=== PATIENT | female | born 1975 | race American Indian/Alaskan Native ===

== ENCOUNTER 2016-09-12 21:11 | Emergency (ER) | payer SELFPAY ==
[2016-09-12] MEDS ORDERED: CATAPRES PO ONE (21:50)
[2016-09-12 22:18] LABS: Basophils % (Auto) 1.2 % (0.0-1.8); Eosinophils % (Auto) 4.3 % (0.0-4.3); Hematocrit 41.1 % (30.3-42.9); Hemoglobin 13.4 gm/dl (10.1-14.3); Mean Corpuscular HGB Conc 32 % (30-34); Mean Corpuscular Hemoglobin 26 pg (28-32); Mean Corpuscular Volume 81 fl (79-97); Platelet Count 275 K/mm3 (140-440); Red Cell Distribution Width 15.4 % (13.2-15.2); White Blood Count 7.5 K/mm3 (4.5-11.0)
[2016-09-12 22:24] LABS: Anion Gap 17 mmol/L; BUN/Creatinine Ratio 16.66; Blood Urea Nitrogen 10 mg/dL (7-17); Calcium 9.2 mg/dL (8.4-10.2); Carbon Dioxide 24 mmol/L (22-30); Chloride 100.8 mmol/L (98-107); Glucose 99 mg/dL (65-100); Potassium 3.5 mmol/L (3.6-5.0); Sodium 138 mmol/L (137-145)
[2016-09-13] MEDS ORDERED: MOTRIN PO ONE (01:26)
[2016-09-13] MEDS ORDERED: TYLENOL PO ONE (01:26)
--- NOTE | 2016-09-13 01:29 | Emergency Department Report ---
ED General Adult HPI - General Chief complaint: Extremity Injury, Upper Stated complaint: NUMBNESS TO R SIDE Time Seen by Provider: 09/13/16 01:18 Source: patient, RN notes reviewed, old records reviewed Mode of arrival: Ambulatory Limitations: No Limitations - History of Present Illness Initial comments: This is a 40-year-old female. She is previously unknown to me. The patient reports that she does not currently have a primary care doctor. She has a history of hypertension, but reports being out of her antihypertensive medication for at least 2 weeks. The patient reports that she is not . The patient presents with intermittent right forearm/hand numbness. This is intermittent for the past few days. The patient reports that she is right- handed [place] There is no extremity weakness. The numbness is primarily on the thumb, pointer, middle finger. It is intermittent. There is no headache, neck pain, chest pain, abdominal pain or shortness of breath. There are no other complaints. The numbness and intermittent pain worsened with palpation on the volar aspect of the wrist. -: Gradual Location: right, upper extremity Severity scale (0 -10): 7 Quality: aching Consistency: intermittent Improves with: movement, rest Associated Symptoms: denies other symptoms - Related Data Home Medications Medication Instructions Recorded Confirmed Last Taken Diovan mg PO DAILY 09/12/16 Unknown Previous Rx's Medication Instructions Recorded Last Taken Type Ibuprofen [Motrin] 600 mg PO Q8H PRN #30 tablet 09/13/16 Unknown Rx Valsartan/Hydrochlorothiazide 1 tab PO QDAY #30 tablet 09/13/16 Unknown Rx [Diovan Hct 160-25 mg] Allergies Allergy/AdvReac Type Severity Reaction Status Date / Time amoxicillin Allergy Headache Verified 03/19/14 23:02 ED Review of Systems ROS: Stated complaint: NUMBNESS TO R SIDE Other details as noted in HPI Constitutional: denies: fever Eyes: denies: vision change ENT: denies: epistaxis Respiratory: denies: cough Cardiovascular: denies: chest pain Gastrointestinal: denies: abdominal pain Genitourinary: as per HPI Musculoskeletal: arthralgia, myalgia Skin: denies: lesions Neurological: paresthesias. denies: weakness Psychiatric: as per HPI ED Past Medical Hx - Past Medical History Hx Hypertension: Yes (out of meds for years.) Additional medical history: Morbid Obesity - Surgical History Past Surgical History?: No - Social History Smoking Status: Never Smoker Substance Use Type: None - Medications Home Medications: Home Medications Medication Instructions Recorded Confirmed Last Taken Type Diovan mg PO DAILY 09/12/16 Unknown History Ibuprofen [Motrin] 600 mg PO Q8H PRN #30 tablet 09/13/16 Unknown Rx Valsartan/Hydrochlorothiazide 1 tab PO QDAY #30 tablet 09/13/16 Unknown Rx [Diovan Hct 160-25 mg] ED Physical Exam - General Limitations: No Limitations General appearance: alert, in no apparent distress, obese - Head Head exam: Present: atraumatic, normocephalic - Eye Eye exam: Present: normal appearance, EOMI. Absent: nystagmus - ENT ENT exam: Present: normal exam, normal orophraynx, mucous membranes moist, normal external ear exam - Neck Neck exam: Present: normal inspection, full ROM. Absent: tenderness, meningismus - Respiratory Respiratory exam: Present: normal lung sounds bilaterally. Absent: respiratory distress, wheezes, rales, rhonchi, stridor, chest wall tenderness, accessory muscle use, decreased breath sounds, prolonged expiratory - Cardiovascular Cardiovascular Exam: Present: regular rate, normal rhythm, normal heart sounds. Absent: systolic murmur, diastolic murmur, rubs, gallop - GI/Abdominal GI/Abdominal exam: Present: soft, normal bowel sounds. Absent: distended, tenderness, guarding, rebound, rigid, pulsatile mass - Extremities Exam Extremities exam: Present: normal inspection, full ROM, normal capillary refill , other ( 2+ pulses are noted in the bilateral upper extremities. Sensation is intact to the deltoid, median, radial, ulnar distribution. Patient has tenderness to percussion on the flexor retinaculum on the right hand. Thumb opposition is intact. Lumbricals are intact. FDP, FDS, extensors are intact.) . Absent: pedal edema, joint swelling, calf tenderness - Back Exam Back exam: Present: normal inspection, full ROM. Absent: tenderness, CVA tenderness (R), CVA tenderness (L), muscle spasm, paraspinal tenderness, vertebral tenderness - Neurological Exam Neurological exam: Present: alert, oriented X3, normal gait, other (Extraocular movements intact. Tongue midline. No facial droop. Facial sensation intact to light touch in the V1, V2, V3 distribution bilaterally. 5 and 5 strength in 4 extremities.. Sensation is intact to light touch in 4 extremities.). Absent : motor sensory deficit - Psychiatric Psychiatric exam: Present: normal affect, normal mood - Skin Skin exam: Present: warm, dry, intact, normal color. Absent: rash ED Course Vital Signs 09/12/16 09/12/16 09/13/16 21:23 21:56 01:13 Temperature 98.5 F Pulse Rate 109 H 109 H 86 Respiratory 18 16 Rate Blood Pressure 223/140 223/140 Blood Pressure 223/140 202/116 [Left] O2 Sat by Pulse 99 99 Oximetry 09/13/16 02:05 Temperature Pulse Rate 87 Respiratory 16 Rate Blood Pressure Blood Pressure 174/102 [Left] O2 Sat by Pulse 98 Oximetry ED Medical Decision Making - Lab Data Result diagrams: 09/12/16 21:54 09/12/16 21:54 Vital Signs 09/12/16 09/12/16 09/13/16 21:23 21:56 01:13 Temperature 98.5 F Pulse Rate 109 H 109 H 86 Respiratory 18 16 Rate Blood Pressure 223/140 223/140 Blood Pressure 223/140 202/116 [Left] O2 Sat by Pulse 99 99 Oximetry 09/13/16 02:05 Temperature Pulse Rate 87 Respiratory 16 Rate Blood Pressure Blood Pressure 174/102 [Left] O2 Sat by Pulse 98 Oximetry Labs 09/12/16 09/12/16 21:54 21:54 WBC 7.5 RBC 5.10 H Hgb 13.4 Hct 41.1 MCV 81 MCH 26 L MCHC 32 RDW 15.4 H Plt Count 275 Lymph % (Auto) 45.7 H [place] % (Auto) 7.6 H Eos % (Auto) 4.3 Baso % (Auto) 1.2 Lymph # 3.4 [place] # 0.6 Eos # 0.3 Baso # 0.1 Seg Neutrophils % 41.2 Seg Neutrophils # 3.1 Sodium 138 Potassium 3.5 L Chloride 100.8 Carbon Dioxide 24 Anion Gap 17 BUN 10 Creatinine 0.6 L Estimated GFR > 60 BUN/Creatinine Ratio 16.66 Glucose 99 Calcium 9.2 Troponin T < 0.010 - EKG Data -: EKG Interpreted by Sd EKG shows normal: sinus rhythm, axis Rate: tachycardia - EKG Data 09/13/16 02:34 sinus tachycardia, 104 bpm, normal axis, QTC 476 ms, nonspecific T-wave abnormality, not morphologically consistent with STEMI, appears unchanged compared to prior from 2015. - Medical Decision Making Differential diagnosis: Neuropathy, poorly controlled hypertension, neuropraxia , radial neuropathy Assessment and plan: 40-year-old female with probable peripheral neuropathy. She is afebrile with reassuring vital signs, with the exception of hypertension which is poorly controlled and asymptomatic. A troponin is sent prior to my evaluation, the patient has no chest pain or shortness of breath or diaphoresis , I do not believe she requires an ACS risk stratification at this time. Laboratory studies were otherwise unremarkable for renal insufficiency, blood pressure improved after clonidine, and the patient felt improved after Motrin. The patient's Diovan prescription is refilled, and she is instructed to closely follow-up and outpatient primary care doctor for her elevated blood pressure. She is counseled that poorly controlled long-term hypertension can lead to , disability, paralysis or stroke. She verbalized understanding to this. Her clinical exam is not consistent with stroke, her history is not consistent with stroke, no obvious infection, fracture, or dislocation. Critical care attestation.: If time is entered above; I have spent that time in minutes in the direct care of this critically ill patient, excluding procedure time. ED Disposition Clinical Impression: Numbness of right hand, Elevated blood pressure reading Disposition: DC-01 TO HOME OR SELFCARE Is pt being admited?: No Does the pt Need Aspirin: No Condition: Good Instructions: Paresthesia (ED), Hypertension (ED) Additional Instructions: Rest and avoid heavy lifting. Avoid strenuous physical activity. Take pain medication as directed. Follow up with an orthopedic hand specialist within the next 2 weeks. Please note that blood pressure was very elevated. This should be followed up by her primary care doctor within the next [address] Deshawn Wilcox is a local primary care doctor. Dr. Peña Delarosa is a local director of orthopedics. A long-term complications of hypertension/elevated blood pressure include stroke, heart attack, disability , , paralysis, permanent loss of quality of life. Please return to the ER right away with new pain, worsened pain, migration of pain, fevers, chills, chest pain, weakness, confusion, intractable nausea or vomiting, inability to tolerate liquid feeds. Prescriptions: Ibuprofen [Motrin] 600 mg PO Q8H PRN #30 tablet PRN Reason: Pain Valsartan/Hydrochlorothiazide [Diovan Hct 160-25 mg] 1 tab PO QDAY #30 tablet Referrals: PRIMARY CARE, [Primary Care Provider] - 3-5 Days PEÑA DELAROSA MD [Staff Physician] - 3-5 Days DESHAWN WILCOX MD [Staff Physician] - 3-5 Days Forms: Work/School Release Form(ED)
[2016-09-13 02:05] VITALS: BP 174/102
== END 2016-09-13 02:05 | disposition home or self-care (01) ==
LOC: ED 21:11
DX: R20.0 Anesthesia of skin (principal); I10 Essential (primary) hypertension; E66.01 Morbid (severe) obesity due to excess calories; Z88.1 Allergy status to other antibiotic agents
CPT/HCPCS: 36415; 80048; 84484; 85025; 93005; 93010; 99283

== ENCOUNTER 2020-02-24 15:36 | Emergency (ER) | payer SELFPAY ==
[2020-02-24] MEDS ORDERED: ACETAMINOPHEN 325 MG TAB PO PRN (15:59)
[2020-02-24] MEDS ORDERED: SODIUM CHLORIDE 0.9% 1000 ML IV SOLN IV ONE (15:59)
[2020-02-24] MEDS ORDERED: SODIUM CHLORIDE 0.9% 500 ML 500 ML IV ONE (16:01)
[2020-02-24 16:15] LABS: Basophils % (Auto) 0.5 % (0.0-1.8); Eosinophils % (Auto) 0.1 % (0.0-4.3); Lymphocytes # (Auto) 1.7 K/mm3 (1.2-5.4); Lymphocytes % (Auto) 28.9 % (13.4-35.0); Mean Corpuscular HGB Conc 33 % (30-34); Mean Corpuscular Volume 79 fl (79-97); Monocytes # (Auto) 0.4 K/mm3 (0.0-0.8); Platelet Count 215 K/mm3 (140-440); Red Blood Count 5.72 M/mm3 (3.65-5.03); Red Cell Distribution Width 15.8 % (13.2-15.2)
[2020-02-24 16:36] LABS: Alanine Aminotransferase 39 units/L (7-56); Albumin 3.8 g/dL (3.9-5); BUN/Creatinine Ratio 10; Blood Urea Nitrogen 8 mg/dL (7-17); Calcium 9.1 mg/dL (8.4-10.2); Hemolysis Index 5
--- NOTE | 2020-02-24 16:39 | Emergency Department Report ---
ED Abdominal Pain HPI - General Chief Complaint: High BP Stated Complaint: ABD PAINS Time Seen by Provider: 02/24/20 16:06 Source: patient Mode of arrival: Ambulatory Limitations: No Limitations - History of Present Illness Initial Comments: 44-year-old female, history of hypertension, presents to ED with complaint of abdominal pain and diarrhea x4 days. She reports approximately 3-4 loose stools per day. Patient states abdominal pain is located in bilateral flank area, although she denies any back pain. Patient denies any nausea or vomiting. She reports fever, for which she took Tylenol. Patient denies any headache, cough, loss of smell or taste, shortness of breath, body aches. Denies any dysuria, hematuria, urinary frequency. His blood pressure is currently elevated. Patient states she ran out of her amlodipine. MD Complaint: flank pain -: days(s) (4) Location: bilateral flank Radiation: none Migration to: no migration Severity: moderate Quality: cramping Consistency: intermittent Improves With: nothing Worsens With: nothing Associated Symptoms: diarrhea, fever. denies: nausea, vomiting, dysuria - Related Data Home Medications Medication Instructions Recorded Confirmed Last Taken Diovan mg PO DAILY 09/12/16 Unknown Previous Rx's Medication Instructions Recorded Last Taken Type Ibuprofen [Motrin] 600 mg PO Q8H PRN #30 tablet 09/13/16 Unknown Rx Valsartan/Hydrochlorothiazide 1 tab PO QDAY #30 tablet 09/13/16 Unknown Rx [Diovan Hct 160-25 mg] Dicyclomine [Bentyl] 20 mg PO QID PRN #20 tablet 02/24/20 Unknown Rx Metoprolol [Lopressor TAB] 25 mg PO BID #60 tablet 02/24/20 Unknown Rx amLODIPine 10 mg PO DAILY #30 tab 02/24/20 Unknown Rx Allergies Allergy/AdvReac Type Severity Reaction Status Date / Time amoxicillin Allergy Headache Verified 03/19/14 23:02 ED Review of Systems ROS: Stated complaint: ABD PAINS Other details as noted in HPI Comment: All other systems reviewed and negative Constitutional: fever. denies: chills ENT: denies: throat pain, congestion Respiratory: denies: cough, shortness of breath Gastrointestinal: abdominal pain, diarrhea. denies: nausea, vomiting Genitourinary: denies: dysuria, frequency, hematuria Musculoskeletal: denies: back pain Neurological: denies: headache ED Past Medical Hx - Past Medical History Previous Medical History?: Yes Hx Hypertension: Yes (out of meds for years.) Additional medical history: Morbid Obesity - Surgical History Past Surgical History?: No - Social History Smoking Status: Never Smoker - Medications Home Medications: Home Medications Medication Instructions Recorded Confirmed Last Taken Type Diovan mg PO DAILY 09/12/16 Unknown History Ibuprofen [Motrin] 600 mg PO Q8H PRN #30 tablet 09/13/16 Unknown Rx Valsartan/Hydrochlorothiazide 1 tab PO QDAY #30 tablet 09/13/16 Unknown Rx [Diovan Hct 160-25 mg] Dicyclomine [Bentyl] 20 mg PO QID PRN #20 tablet 02/24/20 Unknown Rx Metoprolol [Lopressor TAB] 25 mg PO BID #60 tablet 02/24/20 Unknown Rx amLODIPine 10 mg PO DAILY #30 tab 02/24/20 Unknown Rx ED Physical Exam - General Limitations: No Limitations General appearance: alert, in no apparent distress, obese - Head Head exam: Present: atraumatic, normocephalic - Eye Eye exam: Present: normal appearance, EOMI - ENT ENT exam: Present: mucous membranes moist - Neck Neck exam: Present: normal inspection - Respiratory Respiratory exam: Present: normal lung sounds bilaterally. Absent: respiratory distress - Cardiovascular Cardiovascular Exam: Present: normal rhythm, tachycardia - GI/Abdominal GI/Abdominal exam: Present: soft, tenderness (mild bilateral flank tenderness). Absent: distended - Extremities Exam Extremities exam: Present: normal inspection - Back Exam Back exam: Absent: CVA tenderness (R), CVA tenderness (L) - Neurological Exam Neurological exam: Present: alert, oriented X3 - Psychiatric Psychiatric exam: Present: normal affect, normal mood - Skin Skin exam: Present: warm, dry, intact, normal color ED Course Vital Signs 02/24/20 02/24/20 02/24/20 15:48 16:46 17:10 Temperature 100.1 F H 98.4 F Pulse Rate 143 H 132 H Respiratory 14 18 18 Rate Blood Pressure 220/134 Blood Pressure 180/118 [Right] O2 Sat by Pulse 94 100 Oximetry 02/24/20 02/24/20 02/24/20 17:11 19:43 19:45 Temperature Pulse Rate 130 H 102 H 102 H Respiratory 16 Rate Blood Pressure 171/121 194/113 194/113 Blood Pressure [Right] O2 Sat by Pulse 97 Oximetry 02/24/20 20:16 Temperature Pulse Rate 80 Respiratory 12 Rate Blood Pressure 164/119 Blood Pressure [Right] O2 Sat by Pulse 97 Oximetry ED Medical Decision Making - Lab Data Result diagrams: 02/24/20 16:02 02/24/20 16:02 - EKG Data -: EKG Interpreted by Ms EKG shows normal: sinus rhythm, axis, intervals, QRS complexes, ST-T waves Rate: tachycardia (rate 139) - EKG Data Interpretation: no acute changes, LVH - Radiology Data Radiology results: report reviewed, image reviewed - Medical Decision Making 44-year-old female presents to ED with diarrhea and abdominal pain. Patient had a low-grade temp of 100.1 upon arrival, with tachycardia into the 140's. WBCs are normal, lactic acid is normal. Remainder of labs are largely unremarkable. CT abdomen pelvis shows no intra-abdominal abnormality. He does however show some patchy opacities in the lung bases which may represent atelectasis. Patient did not have any shortness of breath or cough. O2 sats are normal. Patient reports noncompliance with blood pressure medication. She was given labetalol here in ED which did help with some of her tachycardia and improved her blood pressure as well. Patient will be discharged at this time. Prescrip tions given. Outpatient follow-up advised, return precautions given. - Differential Diagnosis enteritis, colitis, COVID-19, hyperthyroidism, dehydration Critical care attestation.: If time is entered above; I have spent that time in minutes in the direct care of this critically ill patient, excluding procedure time. ED Disposition Clinical Impression: Abdominal pain, Uncontrolled hypertension, Diarrhea Disposition: - TO HOME OR SELFCARE Is pt being admited?: No Condition: Stable Instructions: Diarrhea, Adult, Abdominal Pain, Adult, Managing Your Hypertension, Calorie Counting for Weight Loss, Hypertension (ED) Prescriptions: amLODIPine 10 mg PO DAILY #30 tab Dicyclomine [Bentyl] 20 mg PO QID PRN #20 tablet PRN Reason: abdominal pain Metoprolol [Lopressor TAB] 25 mg PO BID #60 tablet Referrals: NISHA MOSHER MD [Primary Care Provider] - 3-5 Days [facility] [Provider Group] - 3-5 Days LIZA BURNS MD [Staff Physician] - 3-5 Days [facility] [Outside] - 3-5 Days Time of Disposition: 20:24
[2020-02-24 16:41] LABS: INR 1.04 (0.87-1.13)
--- NOTE | 2020-02-24 17:17 | XRay Report ---
XR chest 1V ap INDICATION / CLINICAL INFORMATION: possible Sepsis. COMPARISON: 7-16 FINDINGS: SUPPORT DEVICES: None. HEART /PULMONARY VASCULATURE: No significant abnormality. LUNGS / PLEURA: Low lung volumes are present. There is perihilar and bibasilar airspace opacities. No pleural effusion. No pneumothorax. ADDITIONAL FINDINGS: No significant additional findings. IMPRESSION: Lung volumes with perihilar and bibasilar airspace opacities, may reflect atelectasis or pneumonia. Signer Name: Leonardo Nazario MD Signed: 02/24/2020 5:12 PM Workstation Name: [id number]
--- NOTE | 2020-02-24 18:47 | Cat Scan Report ---
CT ABDOMEN AND PELVIS WITHOUT CONTRAST INDICATION / CLINICAL INFORMATION: bilateral flank pain. TECHNIQUE: Axial CT images were obtained through the abdomen and pelvis without IV contrast. All CT scans at this location are performed using CT dose reduction for ALARA by means of automated exposure control. COMPARISON: None available. FINDINGS: LOWER CHEST: Patchy reticular opacities in the lung bases noted. LIVER: There is hepatomegaly. GALLBLADDER/BILIARY TREE: Unremarkable PANCREAS: Unremarkable SPLEEN: Unremarkable ADRENALS: Unremarkable KIDNEYS / URETER: Unremarkable. No renal or ureteral calculus. No hydronephrosis. URINARY BLADDER: Bladder is partially decompressed, though grossly unremarkable. REPRODUCTIVE ORGANS: Unremarkable STOMACH / SMALL BOWEL: Stomach and small bowel are normal in caliber. No evidence of bowel inflammati on. COLON: The colon is unremarkable. The appendix is normal in caliber. LYMPH NODES: No significant adenopathy. VASCULATURE: No significant abnormality. OTHER: No free air, free fluid, or focal fluid collection is identified. Small fat-containing periumb ilical hernia. SKELETAL SYSTEM: No acute osseous findings. IMPRESSION: 1. No acute process of the abdomen or pelvis. No urolithiasis or hydronephrosis. 2. Patchy reticular opacities in lung bases, which may reflect atelectasis, though developing infecti ous or inflammatory process is not excluded. Signer Name: Leonardo Nazario MD Signed: 02/24/2020 6:43 PM Workstation Name: [id number]
[2020-02-24 20:19] VITALS: BP 164/119
== END 2020-02-24 20:41 | disposition home or self-care (01) ==
LOC: ED 15:36
DX: R10.9 Unspecified abdominal pain (principal); R19.7 Diarrhea, unspecified; I10 Essential (primary) hypertension; Z79.899 Other long term (current) drug therapy
CPT/HCPCS: 36415; 71045; 74176; 80053; 82140; 82805; 84439; 84443; 84481; 84703; 85025; 85610; 87040; 93005; 96374; 99285; J7040

== ENCOUNTER 2020-02-27 09:37 | Inpatient (IN) | payer OTHER, SELFPAY ==
--- NOTE | 2020-02-27 10:29 | XRay Report ---
CHEST 2 VIEWS INDICATION: Chest Pain. COMPARISON: 02/24/2020 FINDINGS: Support devices: None. Heart: Within normal limits. Lungs/pleura: There is poor inspiration. No acute air space or interstitial disease. No pneumothorax . Additional findings: None. IMPRESSION: No acute findings. Signer Name: Ernesto Singh Jr, MD Signed: 02/27/2020 10:25 AM Workstation Name: [id number]
[2020-02-27 11:10] LABS: Basophils % (Auto) 0.5 % (0.0-1.8); Eosinophils % (Auto) 0.1 % (0.0-4.3); Hematocrit 44.9 % (30.3-42.9); Hemoglobin 14.9 gm/dl (10.1-14.3); Lymphocytes # (Auto) 1.3 K/mm3 (1.2-5.4); Mean Corpuscular HGB Conc 33 % (30-34); Mean Corpuscular Volume 78 fl (79-97); Monocytes # (Auto) 0.6 K/mm3 (0.0-0.8); Monocytes % (Auto) 8.1 % (0.0-7.3); Platelet Count 295 K/mm3 (140-440); Red Blood Count 5.78 M/mm3 (3.65-5.03); Red Cell Distribution Width 15.4 % (13.2-15.2)
[2020-02-27 11:34] LABS: Blood Urea Nitrogen 7 mg/dL (7-17); Calcium 9.7 mg/dL (8.4-10.2); Hemolysis Index 4
[2020-02-27 11:47] LABS: BUN/Creatinine Ratio 12
[2020-02-27] MEDS ORDERED: POTASSIUM CHLORIDE ER 20 MEQ TAB PO ONE (20:33)
--- NOTE | 2020-02-27 20:35 | Emergency Department Report ---
ED General Adult HPI - General Chief complaint: Dyspnea/Respdistress Stated complaint: BREATHING PROBLEM PUI?: Yes Time Seen by Provider: 02/27/20 20:07 Source: patient, RN notes reviewed, old records reviewed Mode of arrival: Ambulatory Limitations: No Limitations - History of Present Illness Initial comments: The patient was evaluated in the emergency department for symptoms described in the history of present illness. He/she was evaluated in the context of the global COVID-19 pandemic, which necessitated consideration that the patient might be at risk for infection with the virus that causes COVID-19. Institutional protocols and algorithms that pertain to the evaluation of patients at risk for COVID-19 are in a state of rapid change based on information released by regulatory bodies including the CDC and federal and state organizations. These policies and algorithms were followed during the patient's care in the emergency department. Please note that these policies, procedures and recommendations changed on a rapid basis. During the entire history and physical examination, I had on complete personal protective equipment. Patient is a 44-year-old female. She has a history of morbid obesity, and hypertension. She does not have a primary care doctor. She states she has not delivered, given , in the past 6 weeks, and she reports that she is not . She was seen in this hospital a few days ago for abdominal pain and diarrhea. She had an x-ray of her chest which showed bilateral lower lobe atelectasis versus opacities, and a noncontrast CT scan of her abdomen pelvis which was negative for intra-abdominal pathology, although lower lobe opacities were noted. The patient was not symptomatic at that time from a pulmonary perspective. Today, the patient presents to the ER with a complaint of nontraumatic shortness of breath. It started yesterday. The patient denies headache, neck pain, chest pain, abdominal pain, urinary symptoms, hematemesis, bright red blood per rectum, travel, surgery, oral contraceptive use. Patient reports chronically sleeping on 4 pillows. She occasionally snores at night. She does not have a formal diagnosis of sleep apnea that she is aware of. She states that this shortness of breath is new. It is constant, does not radiate anywhere, and she does not describe exacerbating or relieving factors. -: Sudden, days(s) Consistency: constant Improves with: none Worsens with: none Associated Symptoms: denies other symptoms, shortness of breath - Related Data Previous Rx's Medication Instructions Recorded Last Taken Type Metoprolol [Lopressor TAB] 25 mg PO BID #60 tablet 02/24/20 Unknown Rx amLODIPine 10 mg PO DAILY #30 tab 02/24/20 02/27/20 Rx 10 mg Allergies Allergy/AdvReac Type Severity Reaction Status Date / Time amoxicillin Allergy Headache Verified 03/19/14 23:02 ED Review of Systems ROS: Stated complaint: BREATHING PROBLEM Other details as noted in HPI Comment: All other systems reviewed and negative Respiratory: orthopnea, shortness of breath, SOB with exertion, SOB at rest ED Past Medical Hx - Past Medical History Previous Medical History?: Yes Hx Hypertension: Yes (out of meds for years.) Additional medical history: Morbid Obesity - Surgical History Past Surgical History?: Yes - Social History Smoking Status: Never Smoker Substance Use Type: None - Medications Home Medications: Home Medications Medication Instructions Recorded Confirmed Last Taken Type Metoprolol [Lopressor TAB] 25 mg PO BID #60 tablet 02/24/20 02/27/20 Unknown Rx amLODIPine 10 mg PO DAILY #30 tab 02/24/20 02/27/20 02/27/20 Rx 10 mg ED Physical Exam - General Limitations: No Limitations General appearance: alert, in no apparent distress, obese - Head Head exam: Present: atraumatic, normocephalic - Eye Eye exam: Present: normal appearance, EOMI. Absent: nystagmus - ENT ENT exam: Present: normal exam, normal orophraynx, mucous membranes moist, normal external ear exam - Neck Neck exam: Present: normal inspection, full ROM. Absent: tenderness, meningismus - Respiratory Respiratory exam: Present: normal lung sounds bilaterally. Absent: respiratory distress, wheezes, rales, rhonchi, stridor - Cardiovascular Cardiovascular Exam: Present: normal rhythm, tachycardia, normal heart sounds. Absent: systolic murmur, diastolic murmur, rubs, gallop - GI/Abdominal GI/Abdominal exam: Present: soft. Absent: distended, tenderness, guarding, rebound, rigid, pulsatile mass - Extremities Exam Extremities exam: Present: normal inspection, full ROM, other (2+ pulses noted in the bilateral upper and lower extremities. There is no palpable cord. neg ative Homans sign. Muscular compartments are soft. The pelvis is stable.). Absent: pedal edema, calf tenderness - Back Exam Back exam: Present: normal inspection, full ROM. Absent: tenderness, CVA tenderness (R), CVA tenderness (L), paraspinal tenderness, vertebral tenderness - Neurological Exam Neurological exam: Present: alert, other (No facial droop. Tongue midline. Extraocular movements intact bilaterally. Facial sensation intact to light touch in V1, V2, V3 distribution bilaterally. 5 and a 5 strength in 4 extremities. Sensation intact to light touch in 4 extremities.) - Psychiatric Psychiatric exam: Present: normal affect, normal mood - Skin Skin exam: Present: warm, dry, intact, normal color. Absent: rash ED Course Vital Signs 02/27/20 02/27/20 02/27/20 09:48 20:06 20:15 Temperature 98.5 F Pulse Rate 140 H 137 H Respiratory 19 35 H Rate Blood Pressure 198/126 197/131 O2 Sat by Pulse 94 88 96 Oximetry 02/27/20 02/27/20 02/27/20 20:31 20:45 21:01 Temperature Pulse Rate 129 H 124 H 118 H Respiratory 17 26 H 27 H Rate Blood Pressure 197/131 197/131 197/131 O2 Sat by Pulse 96 94 96 Oximetry 02/27/20 02/27/20 02/27/20 21:17 21:31 21:41 Temperature Pulse Rate 114 H Respiratory 21 27 H Rate Blood Pressure 197/131 192/106 192/106 O2 Sat by Pulse 96 Oximetry 02/27/20 02/27/20 02/27/20 21:49 22:00 22:15 Temperature Pulse Rate 105 H 103 H Respiratory 31 H 34 H Rate Blood Pressure 192/106 182/113 192/106 O2 Sat by Pulse 97 96 98 Oximetry - Reevaluation(s) Reevaluation #1: 02/27/20 20:39 Differential diagnosis, including but not limited to: Pulmonary embolism, COVID- 19, pneumonia, obstructive sleep apnea, pulmonary hypertension, right-sided cardiac dysfunction Pericardial effusion Assessment and plan: 44-year-old female who is morbidly obese, markedly tachycardic, with chronic hypertension, presenting with new onset shortness of breath. A few days ago she was seen at this hospital for nonspecific abdominal pain and diarrhea, had CT scan of her abdomen pelvis which showed pulmonary opacities, however, she was not symptomatic from a pulmonary perspective. Place patient on isolation, obtain CT angiogram of the chest to evaluate for pulmonary embolism versus pneumonia versus pericardial effusion. Hold negative inotropes at this time, given that tachycardia might be compensatory. Replete potassium, patient is mildly hypokalemic. Troponin was sent prior to my personal evaluation. Do not clinically suspect acute coronary syndrome at this time. Do not clinically suspect aortic catastrophe at this time. Has equal pulses in the upper and lower extremities, and no physical pain. Reassess after CT angiogram. Discussed this with the patient. 02/27/20 22:[address] scan of the chest shows the followin. Scattered groundglass opacities throughout bilateral lung myers with peripheral predominance likely represents a viral versus atypical infectious process. No evidence of pulmonary embolism or aortic disease is noted. Patient given trial of ambulation. Unfortunately, patient not able to tolerate trial, became very symptomatic, and oxygen desaturation occurred, to 88% with ambulation. Patient therefore meets criteria for hospitalization/admission. The patient is amenable to this plan of care. She states that her "amoxicillin allergy", is headache, without anaphylactic/anaphylactoid symptoms. Ceftriaxone is a third-generation cephalosporin, and structurally to similar to penicillins, and is therefore very unlikely to cause anaphylactic/anaphylactoid reaction. We will treat with oxygen therapy, ceftriaxone, azithromycin, and Decadron. As a courtesy, infectious disease consultation will be ordered. Hospital physician, Dr. Kyung Victoria to admit 02/27/20 22:50 Appreciate that patient meets systemic inflammatory response syndrome criteria. Suspect abnormal vital signs physiologic response to underlying illness, likely COVID-19. Given propensity for COVID-19 patients to develop acute respiratory distress syndrome, and given that I suspect patient has undiagnosed obstructive sleep apnea, in addition to probable pulmonary hypertension, and obesity hypoventilation syndrome, and aggressive large bolus of fluid may cause the patient to decompensate from a respiratory standpoint. Therefore, we will withhold 30 cc/kg bolus of IV fluids. We will defer to inpatient team to further manage patient's fluid requirements. ED Medical Decision Making - Lab Data Result diagrams: 02/27/20 10:58 02/27/20 20:39 Vital Signs 02/27/20 09:48 Temperature 98.5 F Pulse Rate 140 H Respiratory 19 Rate Blood Pressure 198/126 O2 Sat by Pulse 94 Oximetry Lab Results 02/27/20 02/27/20 02/27/20 Range/Units 10:58 10:58 14:40 WBC 6.9 (4.5-11.0) K/mm3 RBC 5.78 H (3.65-5.03) M/mm3 Hgb 14.9 H (10.1-14.3) gm/dl Hct 44.9 H (30.3-42.9) % MCV 78 L (79-97) fl MCH 26 L (28-32) pg MCHC 33 (30-34) % RDW 15.4 H (13.2-15.2) % Plt Count 295 (140-440) K/mm3 Lymph % (Auto) 19.0 (13.4-35.0) % Yates % (Auto) 8.1 H (0.0-7.3) % Eos % (Auto) 0.1 (0.0-4.3) % Baso % (Auto) 0.5 (0.0-1.8) % Lymph # (Auto) 1.3 (1.2-5.4) K/mm3 Yates # (Auto) 0.6 (0.0-0.8) K/mm3 Eos # (Auto) 0.0 (0.0-0.4) K/mm3 Baso # (Auto) 0.0 (0.0-0.1) K/mm3 Seg Neutrophils % 72.3 H (40.0-70.0) % Seg Neutrophils # 5.0 (1.8-7.7) K/mm3 Sodium 136 L (137-145) mmol/L Potassium 3.4 L (3.6-5.0) mmol/L Chloride 97.1 L (98-107) mmol/L Carbon Dioxide 27 (22-30) mmol/L Anion Gap 15 mmol/L BUN 7 (7-17) mg/dL Creatinine 0.6 (0.6-1.2) mg/dL Estimated GFR > 60 ml/min BUN/Creatinine Ratio 12 % Glucose 117 H (65-100) mg/dL Calcium 9.7 (8.4-10.2) mg/dL Troponin T < 0.010 < 0.010 (0.00-0.029) ng/mL - EKG Data -: EKG Interpreted by [facility] EKG shows normal: sinus rhythm Rate: tachycardia - EKG Data 02/27/20 20:40 Sinus rhythm, tachycardia, 129 bpm, there is a normal axis, the QTC is prolonged, there is atrial enlargement. This EKG is abnormal. This EKG is not a STEMI. - Radiology Data Radiology results: pending, report reviewed, image reviewed XR chest 1V ap INDICATION / CLINICAL INFORMATION: possible Sepsis. COMPARISON: 10-11 FINDINGS: SUPPORT DEVICES: None. HEART /PULMONARY VASCULATURE: No significant abnormality. LUNGS / PLEURA: Low lung volumes are present. There is perihilar and bibasilar airspace opacities. No pleural effusion. No pneumothorax. ADDITIONAL FINDINGS: No significant additional findings. IMPRESSION: Lung volumes with perihilar and bibasilar airspace opacities, may reflect atelectasis or pneumonia. Signer Name: Leonardo Nazario MD Signed: 02/24/2020 4:12 PM Workstation Name: [id number] CHEST 2 VIEWS INDICATION: Chest Pain. COMPARISON: 02/24/2020 FINDINGS: Support devices: None. Heart: Within normal limits. Lungs/pleura: There is poor inspiration. No acute air space or interstitial disease. No pneumothorax. Additional findings: None. IMPRESSION: No acute findings. Signer Name: Ernesto Singh Jr, MD Signed: 02/27/2020 9:25 AM Workstation Name: [id number] TECHNIQUE: Axial CT images were obtained through the abdomen and pelvis without IV contrast. All CT scans at this location are performed using CT dose reduction for ALARA by means of automated exposure control. COMPARISON: None available. FINDINGS: LOWER CHEST: Patchy reticular opacities in the lung bases noted. LIVER: There is hepatomegaly. GALLBLADDER/BILIARY TREE: Unremarkable PANCREAS: Unremarkable SPLEEN: Unremarkable ADRENALS: Unremarkable KIDNEYS / URETER: Unrem arkable. No renal or ureteral calculus. No hydronephrosis. URINARY BLADDER: Bladder is partially decompressed, though grossly unremarkable. REPRODUCTIVE ORGANS: Unremarkable STOMACH / SMALL BOWEL: Stomach and small bowel are normal in caliber. No evidence of bowel inflammation. COLON: The colon is unremarkable. The appendix is normal in caliber. LYMPH NODES: No significant adenopathy. VASCULATURE: No significant abnormality. OTHER: No free air, free fluid, or focal fluid collection is identified. Small fat-containing periumbilical hernia. SKELETAL SYSTEM: No acute osseous findings. IMPRESSION: 1. No acute process of the abdomen or pelvis. No urolithiasis or hydronephrosis. 2. Patchy reticular opacities in lung bases, which may reflect atelectasis, though developing infectious or inflammatory process is not excluded. Signer Name: Leonardo Nazario MD Signed: 02/24/2020 5:43 PM Workstation Name: [id number] CTA CHEST WITH CONTRAST INDICATION / CLINICAL INFORMATION: P.E. PROTOCOL!!! Patient has acute dyspnea and tachycairdia. TECHNIQUE: Axial CT images were obtained through the chest after injection of IV contrast. 3 plane MIP and/or 3D reconstructions were produced. All CT scans at this location are performed using CT dose reduction for ALARA by means of automated exposure control. COMPARISON: No prior CT chest. Recent chest radiograph dated 02/27/2020. FINDINGS: PULMONARY ARTERIES: No pulmonary emboli. THORACIC AORTA: No significant abnormality. HEART: No significant abnormality. No right heart strain. CORONARY ARTERIES: No significant calcification. MEDIASTINUM / DARRYL: No significant abnormality. PLEURA: No pleural effusion. No pneumothorax. LUNGS: Scattered groundglass opacities noted throughout bilateral lung myers with peripheral predominance. ADDITIONAL FINDINGS: None. UPPER ABDOMEN: No acute findings. SKELETAL STRUCTURES: No significant osseous abnormality. I MPRESSION: 1. No CT evidence for pulmonary embolism or right heart strain. 2. Scattered groundglass opacities throughout bilateral lung myers with peripheral predominance likely represents a viral versus atypical infectious process. Signer Name: Radu Conti MD Signed: 02/27/2020 8:41 PM Workstation Name: [id number] Critical Care Time: Yes Critical care time in (mins) excluding proc time.: 35 Critical care attestation.: If time is entered above; I have spent that time in minutes in the direct care o f this critically ill patient, excluding procedure time. ED Disposition Clinical Impression: Suspected 2019 novel coronavirus infection, Acute dyspnea, Hypoxia, Morbid obesity, Pulmonary infiltrate on radiologic exam, Uncontrolled hypertension Disposition: OP ADMIT IP TO THIS HOSP Is pt being admited?: Yes Does the pt Need Aspirin: No Condition: Serious Instructions: Hypertension (ED) Referrals: PRIMARY CARE, [Primary Care Provider] - 3-5 Days
[2020-02-27] MEDS ORDERED: amLODIPine 5 MG TAB PO ONE (20:41)
[2020-02-27] MEDS ORDERED: SODIUM CHLORIDE 0.9% 500 ML 500 ML IV ONE (20:41)
[2020-02-27 21:31] LABS: C-Reactive Protein 3.6 mg/dL (0.00-1.30)
--- NOTE | 2020-02-27 21:45 | Cat Scan Report ---
CTA CHEST WITH CONTRAST INDICATION / CLINICAL INFORMATION: P.E. PROTOCOL!!! Patient has acute dyspnea and tachycairdia. TECHNIQUE: Axial CT images were obtained through the chest after injection of IV contrast. 3 plane MIP and/or 3D reconstructions were produced. All CT scans at this location are performed using CT dose reduction f or ALARA by means of automated exposure control. COMPARISON: No prior CT chest. Recent chest radiograph dated 02/27/2020. FINDINGS: PULMONARY ARTERIES: No pulmonary emboli. THORACIC AORTA: No significant abnormality. HEART: No significant abnormality. No right heart strain. CORONARY ARTERIES: No significant calcification. MEDIASTINUM / DARRYL: No significant abnormality. PLEURA: No pleural effusion. No pneumothorax. LUNGS: Scattered groundglass opacities noted throughout bilateral lung myers with peripheral predomi nance. ADDITIONAL FINDINGS: None. UPPER ABDOMEN: No acute findings. SKELETAL STRUCTURES: No significant osseous abnormality. IMPRESSION: 1. No CT evidence for pulmonary embolism or right heart strain. 2. Scattered groundglass opacities throughout bilateral lung myers with peripheral predominance like ly represents a viral versus atypical infectious process. Signer Name: Radu Conti MD Signed: 02/27/2020 9:41 PM Workstation Name: [id number]
[2020-02-27] MEDS ORDERED: AZITHROMYCIN 500 MG in SODIUM CHLORIDE 0.9% 250ML 250 ML IV ONE (22:44)
[2020-02-27] MEDS ORDERED: dexAMETHasone 4 MG/ML VIAL IV ONE (22:44)
[2020-02-27] MEDS ORDERED: cefTRIAXone/NS 1 GM/50 ML 1 GM/50 ML BAG IV ONE (22:44)
[2020-02-27] MEDS ORDERED: MAGNESIUM HYDROXIDE (MOM) ORAL LIQD UDC PO PRN (23:40)
[2020-02-27] MEDS ORDERED: ONDANSETRON 4 MG/2 ML INJ IV PRN (23:40)
[2020-02-27] MEDS ORDERED: MORPHINE 2 MG/1 ML INJ IV PRN (23:40)
[2020-02-27] MEDS ORDERED: ACETAMINOPHEN 325 MG TAB PO PRN (23:40)
--- NOTE | 2020-02-27 23:48 | History and Physical Report ---
History of Present Illness Date of examination: 02/27/20 Date of admission: 02/27/20 22:49 Chief complaint: Shortness of Breath History of present illness: 44-year-old female with known history of hypertension and morbid obesity presenting to the emergency room today complaining of shortness of breath and generalized weakness. Shortness of breath is said to have started yesterday. She denies any fever or chills, no chest pain, no nausea vomiting, no abdominal pain, no hematuria or dysuria. Patient denies any sick contacts and no recent travel. Patient was seen in this hospital few days ago with abdominal pain and diarrhea x-ray of the chest showed bilateral lower lobe atelectasis versus opacities, a noncontrast CT scan of the abdomen and pelvis was negative for any intra- abdominal pathology. Upon arrival in the emergency room patient was hypoxic on minimal exertion. Blood pressure was only so elevated with systolic in the 200s. However patient indicates that she was slightly anxious. Work-up in the emergency room today, CT angiogram reveals scattered groundglass opacities, no evidence of pulmonary embolism. Patient was mildly hypokalemic with potassium of 3.4. Patient placed on empiric IV antibiotics and also placed on isolation precaut ions for Covid 19. Past History Past Medical History: hypertension Past Surgical History: No surgical history Social history: no significant social history Family history: no significant family history Medications and Allergies Allergies Allergy/AdvReac Type Severity Reaction Status Date / Time amoxicillin Allergy Headache Verified 03/19/14 23:02 Home Medications Medication Instructions Recorded Confirmed Last Taken Type Metoprolol [Lopressor TAB] 25 mg PO BID #60 tablet 02/24/20 02/27/20 Unknown Rx amLODIPine 10 mg PO DAILY #30 tab 02/24/20 02/27/20 02/27/20 Rx 10 mg Active Meds: Active Medications Acetaminophen (Tylenol) 650 mg PO Q4H PRN PRN Reason: Pain MILD(1-3)/Fever >100.5/ADEN Enoxaparin Sodium (Enoxaparin) 40 mg SUB-Q QDAY@2200 SAMANTHA; Protocol Ceftriaxone Sodium (Rocephin/Ns 2 Gm/100 Ml) 2 gm in 100 mls @ 200 mls/hr IV Q24HR SAMANTHA; Protocol Azithromycin 500 mg/ Sodium (Chloride) 250 mls @ 250 mls/hr IV Q24HR SAMANTHA; Protocol Magnesium Hydroxide (Milk Of Magnesia) 30 ml PO Q4H PRN PRN Reason: Constipation Morphine Sulfate (Morphine) 2 mg IV Q4H PRN PRN Reason: Pain, Moderate (4-6) Ondansetron HCl (Zofran) 4 mg IV Q8H PRN PRN Reason: Nausea And Vomiting Sodium Chloride (Sodium Chloride Flush Syringe 10 Ml) 10 ml IV BID SAMANTHA Sodium Chloride (Sodium Chloride Flush Syringe 10 Ml) 10 ml IV PRN PRN PRN Reason: LINE FLUSH Review of Systems Constitutional: no fever, no chills Ears, nose, mouth and throat: no nasal congestion, no sore throat Cardiovascular: no chest pain, no palpitations Respiratory: cough, shortness of breath Gastrointestinal: no abdominal pain, no nausea, no vomiting, no diarrhea Genitourinary Female: no pelvic pain, no flank pain, no dysuria Musculoskeletal: no neck pain, no low back pain Integumentary: no rash, no pruritis Neurological: no headaches, no confusion Psychiatric: no anxiety, no depression Exam - Constitutional Vitals: Temp Pulse Resp BP Pulse Ox 98.5 F 103 H 34 H 192/106 98 02/27/20 09:48 02/27/20 22:15 02/27/20 22:15 02/27/20 22:15 02/27/20 22:15 General appearance: Present: no acute distress, well-nourished, obese - EENT Eyes: Present: PERRL. Absent: scleral icterus ENT: hearing intact, clear oral mucosa, dentition normal - Neck Neck: Present: supple, normal ROM - Respiratory Respiratory effort: normal Respiratory: bilateral: rales - Cardiovascular Rhythm: regular Heart Sounds: Present: S1 & S2. Absent: gallop, systolic murmur, diastolic murmur, rub - Extremities Extremities: no ischemia, pulses intact, pulses symmetrical, No edema, Full ROM Peripheral Pulses: within normal limits - Abdominal General gastrointestinal: Present: soft, non-tender, non-distended, normal bowel sounds. Absent: mass - Musculoskeletal Musculoskeletal: strength equal bilaterally - Psychiatric Psychiatric: appropriate mood/affect, intact judgment & insight, memory intact, cooperative - Neurologic Neurologic: CNII-XII intact, no focal deficits, moves all extremities HEART Score - HEART Score Troponin: Troponin T < 0.010 ng/mL (0.00-0.029) 02/27/20 14:40 Results - Labs CBC & Chem 7: 02/27/20 10:58 02/27/20 20:39 Labs: Abnormal lab results 02/27/20 02/27/20 02/27/20 Range/Units 10:58 10:58 20:39 RBC 5.78 H (3.65-5.03) M/mm3 Hgb 14.9 H (10.1-14.3) gm/dl Hct 44.9 H (30.3-42.9) % MCV 78 L (79-97) fl MCH 26 L (28-32) pg RDW 15.4 H (13.2-15.2) % Steele % (Auto) 8.1 H (0.0-7.3) % Seg Neutrophils % 72.3 H (40.0-70.0) % D-Dimer 312.01 H (0-234) ng/mlDDU Sodium 136 L (137-145) mmol/L Potassium 3.4 L (3.6-5.0) mmol/L Chloride 97.1 L (98-107) mmol/L Glucose 117 H (65-100) mg/dL Ferritin (10.0-200.0) ng/mL Lactate Dehydrogenase (91-180) units/L C-Reactive Protein (0.00-1.30) mg/dL 02/27/20 02/27/20 Range/Units 20:39 20:39 RBC (3.65-5.03) M/mm3 Hgb (10.1-14.3) gm/dl Hct (30.3-42.9) % MCV (79-97) fl MCH (28-32) pg RDW (13.2-15.2) % Steele % (Auto) (0.0-7.3) % Seg Neutrophils % (40.0-70.0) % D-Dimer (0-234) ng/mlDDU Sodium (137-145) mmol/L Potassium (3.6-5.0) mmol/L Chloride (98-107) mmol/L Glucose 110 H (65-100) mg/dL Ferritin 366.5 H (10.0-200.0) ng/mL Lactate Dehydrogenase 440 H (91-180) units/L C-Reactive Protein 3.60 H (0.00-1.30) mg/dL Assessment and Plan - Patient Problems (1) Pneumonia Current Visit: Yes Status: Acute Plan to address problem: Possibly viral pneumonia. However patient started on empiric IV antibiotics. We also await blood culture results. (2) Suspected 2019 novel coronavirus infection Current Visit: Yes Status: Acute Plan to address problem: Patient placed on isolation precautions. We await COVID-19 testing. (3) Hypoxia Current Visit: Yes Status: Acute Plan to address problem: Possibly secondary to the underlying pneumonia. We will keep O2 saturation greater or equal to 94%. (4) Morbid obesity Current Visit: Yes Status: Acute Plan to address problem: We will place dietary consult. (5) Uncontrolled hypertension Current Visit: Yes Status: Acute Plan to address problem: We will resume routine antihypertensive medications once reconciled. Will monitor vital signs closely. (6) DVT prophylaxis Current Visit: Yes Status: Acute Plan to address problem: Patient placed on subcutaneous Lovenox. (7) Full code status Current Visit: Yes Status: Acute
[2020-02-28] MEDS ORDERED: cloNIDine 0.1 MG TAB PO ONE (00:25)
[2020-02-28] MEDS ORDERED: cloNIDine 0.1 MG TAB ONE (00:38)
[2020-02-28 05:27] LABS: Basophils % (Auto) 0.5 % (0.0-1.8); Eosinophils % (Auto) 0.1 % (0.0-4.3); Hematocrit 41.8 % (30.3-42.9); Lymphocytes # (Auto) 0.7 K/mm3 (1.2-5.4); Lymphocytes % (Auto) 12.2 % (13.4-35.0); Mean Corpuscular HGB Conc 34 % (30-34); Mean Corpuscular Volume 78 fl (79-97); Monocytes # (Auto) 0.3 K/mm3 (0.0-0.8); Monocytes % (Auto) 5.5 % (0.0-7.3); Platelet Count 292 K/mm3 (140-440); Red Blood Count 5.34 M/mm3 (3.65-5.03); Red Cell Distribution Width 15.2 % (13.2-15.2)
[2020-02-28 05:30] LABS: INR 1.01 (0.87-1.13)
[2020-02-28 05:36] LABS: Blood Urea Nitrogen 8 mg/dL (7-17); Calcium 9.4 mg/dL (8.4-10.2); Hemolysis Index 11
[2020-02-28 05:47] LABS: BUN/Creatinine Ratio 11
[2020-02-28] MEDS ORDERED: hydrALAZINE 20 MG/1 ML INJ IV PRN (10:00)
[2020-02-28] MEDS ORDERED: AZITHROMYCIN 500 MG in SODIUM CHLORIDE 0.9% 250ML 250 ML IV SCH (10:00)
[2020-02-28] MEDS ORDERED: cefTRIAXone/NS 2 GM/100 ML 2 GM/100 ML BAG IV SCH (10:00)
[2020-02-28] MEDS ORDERED: METOPROLOL TARTRATE 25 MG TAB PO SCH (10:00)
[2020-02-28] MEDS ORDERED: dexAMETHasone 4 MG/ML VIAL ONE (10:37)
[2020-02-28] MEDS ORDERED: cefTRIAXone/NS 2 GM/100 ML 2 GM/100 ML BAG IV ONE (10:37)
[2020-02-28] MEDS ORDERED: METOPROLOL TARTRATE 25 MG TAB ONE (10:38)
[2020-02-28] MEDS ORDERED: amLODIPine 10 MG TAB ONE (10:38)
[2020-02-28] MEDS: amLODIPine 10 MG TAB PO SCH (11:04)
[2020-02-28] MEDS: dexAMETHasone 4 MG/ML VIAL IV SCH (11:05)
--- NOTE | 2020-02-28 15:59 | Consultation ---
History of Present Illness - Reason for Consult Consult date: 02/28/20 - History of Present Illness 44-year-old female past medical history hypertension, morbid obesity presented to the hospital complaining of shortness of breath and weakness. He notes the symptoms began the day prior to admission rest of since then. and has been otherwise denies any symptoms. She denies any sick contacts or known Covid exposures. She was seen in the emergency room here couple days ago with abdominal pain and diarrhea, and no pathology was found on imaging. She was found to be hypoxic and hypotensive on presentation to the hospital. Afebrile since admission with a normal white count. Currently on ceftriaxone azithromycin. Procalcitonin normal, blood cultures currently pending. Covid testing positive. Imaging personally reviewed: Chest CTA: Scattered groundglass opacities. Review of Systems: Bold if positive, otherwise negative General: fevers, chills, rigors HEENT: visual disturbance, diplopia, eye pain Respiratory: cough, sputum, hemoptysis, shortness of breath Cardiovascular: chest pain, syncope Gastrointestinal: nausea, vomiting, diarrhea, abdominal pain Genitourinary: dysuria, hematuria, flank pain Musculoskeletal: neck pain, back pain, joint pain, edema Neurologic: headaches, seizures Hematologic: easy bruising or bleeding Endocrine: night sweats, acute weight loss Skin: rash, jaundice, redness Psychiatric: suicidal, homicidal ideation Past History Past Medical History: hypertension Past Surgical History: No surgical history Social history: no significant social history Family history: no significant family history Medications and Allergies Allergies Allergy/AdvReac Type Severity Reaction Status Date / Time amoxicillin Allergy Headache Verified 03/19/14 23:02 Home Medications Medication Instructions Recorded Confirmed Last Taken Type Metoprolol [Lopressor TAB] 25 mg PO BID #60 tablet 02/24/20 02/27/20 Unknown Rx amLODIPine 10 mg PO DAILY #30 tab 02/24/20 02/27/20 02/27/20 Rx 10 mg Active Meds: Active Medications Acetaminophen (Tylenol) 650 mg PO Q4H PRN PRN Reason: Pain MILD(1-3)/Fever >100.5/ADEN Amlodipine Besylate (Amlodipine) 10 mg PO DAILY [facility] Last Admin: 02/28/20 11:04 Dose: 10 mg Documented by: Dexamethasone (Decadron) 6 mg IV Q24HR [facility] Stop: 03/07/20 10:01 Last Admin: 12/02/20 11:05 Dose: 6 mg Documented by: Enoxaparin Sodium (Enoxaparin) 40 mg SUB-Q QDAY@2200 [facility]; Protocol Hydralazine HCl (Apresoline) 10 mg IV Q4HR PRN PRN Reason: Hypertension Ceftriaxone Sodium (Rocephin/Ns 2 Gm/100 Ml) 2 gm in 100 mls @ 200 mls/hr IV Q24HR [facility]; Protocol Last Admin: 02/28/20 11:06 Dose: 200 mls/hr Documented by: Azithromycin 500 mg/ Sodium (Chloride) 250 mls @ 250 mls/hr IV Q24HR [facility]; Protocol Stop: 03/02/20 10:59 Last Admin: 02/28/20 11:06 Dose: 250 mls/hr Documented by: Labetalol HCl (Labetalol) 10 mg IV Q3HR PRN PRN Reason: Hypertension Last Admin: 02/28/20 15:49 Dose: 10 mg Documented by: Magnesium Hydroxide (Milk Of Magnesia) 30 ml PO Q4H PRN PRN Reason: Constipation Metoprolol Tartrate (Metoprolol) 25 mg PO BID [facility] Last Admin: 02/28/20 11:05 Dose: 25 mg Documented by: Morphine Sulfate (Morphine) 2 mg IV Q4H PRN PRN Reason: Pain, Moderate (4-6) Ondansetron HCl (Zofran) 4 mg IV Q8H PRN PRN Reason: Nausea And Vomiting Sodium Chloride (Sodium Chloride Flush Syringe 10 Ml) 10 ml IV BID [facility] Sodium Chloride (Sodium Chloride Flush Syringe 10 Ml) 10 ml IV PRN PRN PRN Reason: LINE FLUSH Physical Examination - Physical Exam Narrative exam: Physical exam deferred due to PPE conservation strategy. Please refer to primary team's note. - Constitutional Vitals: Vital Signs Temp Pulse Resp BP Pulse Ox 98.5 F 108 H 36 H 185/116 95 02/27/20 09:48 02/28/20 15:49 02/28/20 15:00 02/28/20 15:49 02/28/20 15:00 Results - Labs CBC & Chem 7: 02/28/20 04:45 02/28/20 04:45 Labs: Abnormal lab results 02/27/20 02/27/20 02/27/20 Range/Units 20:39 20:39 20:39 RBC (3.65-5.03) M/mm3 MCV (79-97) fl MCH (28-32) pg Lymph % (Auto) (13.4-35.0) % Lymph # (Auto) (1.2-5.4) K/mm3 Seg Neutrophils % (40.0-70.0) % D-Dimer 312.01 H (0-234) ng/mlDDU Glucose 110 H (65-100) mg/dL Ferritin 366.5 H (10.0-200.0) ng/mL Lactate Dehydrogenase 440 H (91-180) units/L C-Reactive Protein 3.60 H (0.00-1.30) mg/dL Coronavirus (PCR) (Negative) 02/28/20 02/28/20 02/28/20 Range/Units 04:45 04:45 08:10 RBC 5.34 H (3.65-5.03) M/mm3 MCV 78 L (79-97) fl MCH 26 L (28-32) pg Lymph % (Auto) 12.2 L (13.4-35.0) % Lymph # (Auto) 0.7 L (1.2-5.4) K/mm3 Seg Neutrophils % 81.7 H (40.0-70.0) % D-Dimer (0-234) ng/mlDDU Glucose 131 H (65-100) mg/dL Ferritin (10.0-200.0) ng/mL Lactate Dehydrogenase (91-180) units/L C-Reactive Protein (0.00-1.30) mg/dL Coronavirus (PCR) Positive A (Negative) Assessment and Plan Cultures: Blood culture 02/27/2020 pending A/P: 44-year-old female past medical history hypertension, obesity admitted with COVID-19 #COVID-19 pneumonia: Presented with 2 days of symptoms. #Acute hypoxemic respiratory failure: Likely secondary to COVID-19 infection. Currently on room air #Morbid obesity: Associated with worse COVID-19 outcomes #Penicillin allergy: Tolerating ceftriaxone Recs: -Recommend steroids for 10 days -If hypoxia worsens will start remdesivir -Stop antibiotics on the basis of normal procalcitonin -Proning as able -Anticoagulation per hospital protocol -Obtain daily inflammatory markers - ferritin, Ddimer, CRP, LDH Thank you for the consult, we will continue to follow. Constanza Redding MD [facility] ([facility] O: [phone] F: [phone]
[2020-02-28] MEDS ORDERED: hydrALAZINE 100 MG TAB PO SCH (18:30)
--- NOTE | 2020-02-28 18:44 | Progress Note ---
Assessment and Plan Assessment and plan: 44-year-old female with known history of hypertension and morbid obesity presenting to the emergency room today complaining of shortness of breath and generalized weakness. Shortness of breath is said to have started yesterday. She denies any fever or chills, no chest pain, no nausea vomiting, no abdominal pain, no hematuria or dysuria. Patient denies any sick contacts and no recent travel. Patient was seen in this hospital few days ago with abdominal pain and diarrhea x-ray of the chest showed bilateral lower lobe atelectasis versus opacities, a noncontrast CT scan of the abdomen and pelvis was negative for any intra- abdominal pathology. CT chest IMPRESSION: 1. No CT evidence for pulmonary embolism or right heart strain. 2. Scattered groundglass opacities throughout bilateral lung myers with peripheral predominance likely represents a viral versus atypical infectious process. Upon arrival in the emergency room patient was hypoxic on minimal exertion. Blood pressure was only so elevated with systolic in the 200s. However patient indicates that she was slightly anxious. Work-up in the emergency room today, CT angiogram reveals scattered groundglass opacities, no evidence of pulmonary embolism. Patient was mildly hypokalemic with potassium of 3.4. Patient placed on empiric IV antibiotics and also placed on isolation precautions for Covid 19. 02/27: Discussed compliance with the patient on BP meds, will gradually control to prevent sudden drop. Patient confirmed COVID19. We will add some vitamins. Extensive counseling 15 minutes on weight management. The patient reports that she lives in a house with her daughter and grandson and a roommate. She has not notified them so that they cannot be tested. Encourage prone positioning. Continue management per ID. (1) Pneumonia Current Visit: Yes Status: Acute Plan to address problem: Possibly viral pneumonia. However patient started on empiric IV antibiotics. We also await blood culture results. (2) 2019 novel coronavirus infection Current Visit: Yes Status: Acute Plan to address problem: Patient placed on isolation precautions. We await COVID-19 testing. (3) Hypoxia Current Visit: Yes Status: Acute Plan to address problem: Possibly secondary to the underlying pneumonia. We will keep O2 saturation greater or equal to 94%. (4) Morbid obesity Current Visit: Yes Status: Acute Plan to address problem: We will place dietary consult. (5) Uncontrolled hypertension Current Visit: Yes Status: Acute Plan to address problem: We will resume routine antihypertensive medications once reconciled. Will monitor vital signs closely. (6) DVT prophylaxis Current Visit: Yes Status: Acute Plan to address problem: Patient placed on subcutaneous Lovenox. (7) Full code status Current Visit: Yes Status: Acute History Interval history: Patient admitted with hypertensive urgency, shortness of breath. Patient seen and evaluated this morning reports improvement in her breathing but not at baseline. Nursing staff reports persistent hypertensive. Patient at home states that her blood pressure consistently is above 180/100. Hospitalist Physical - Physical exam Narrative exam: VITAL SIGNS: Reviewed. GENERAL: The patient appears normally developed, morbidly obese vital signs as documented. HEAD: No signs of head trauma. EYES: Pupils are equal. Extraocular motions intact. EARS: Hearing grossly intact. MOUTH: Oropharynx is normal. NECK: No adenopathy, no JVD. CHEST: Chest with diminished breath sounds bilaterally. No wheezes, rales, or rhonchi. CARDIAC: Regular rate and rhythm. S1 and S2, without murmurs, gallops, or rubs. VASCULAR: No Edema. Peripheral pulses normal and equal in all extremities. ABDOMEN: Soft, non tender and non distended. No rebound or guarding, and no masses palpated. Bowel Sounds normal. MUSCULOSKELETAL: Good range of motion of all major joints. Extremities without clubbing, cyanosis or edema. NEUROLOGIC EXAM: Alert and oriented x 3 No focal sensory or strength deficits. Speech normal. Follows commands. PSYCHIATRIC: Mood normal. SKIN: detail exam as documented in skin assessment - Constitutional Vitals: Temp Pulse Resp BP Pulse Ox 98.5 F 108 H 37 H 195/115 93 02/27/20 09:48 02/28/20 18:00 02/28/20 18:00 02/28/20 18:00 02/28/20 18:00 General appearance: Present: no acute distress, well-nourished, obese HEART Score - HEART Score Troponin: Troponin T < 0.010 ng/mL (0.00-0.029) 02/27/20 14:40 Results - Labs CBC & Chem 7: 02/28/20 04:45 02/28/20 04:45 Labs: Laboratory Last Values WBC 6.0 K/mm3 (4.5-11.0) 02/28/20 04:45 RBC 5.34 M/mm3 (3.65-5.03) H 02/28/20 04:45 Hgb 14.0 gm/dl (10.1-14.3) 02/28/20 04:45 Hct 41.8 % (30.3-42.9) 02/28/20 04:45 MCV 78 fl (79-97) L 02/28/20 04:45 MCH 26 pg (28-32) L 02/28/20 04:45 MCHC 34 % (30-34) 02/28/20 04:45 RDW 15.2 % (13.2-15.2) 02/28/20 04:45 Plt Count 292 K/mm3 (140-440) 02/28/20 04:45 Lymph % (Auto) 12.2 % (13.4-35.0) L 02/28/20 04:45 [place] % (Auto) 5.5 % (0.0-7.3) 02/28/20 04:45 Eos % (Auto) 0.1 % (0.0-4.3) 02/28/20 04:45 Baso % (Auto) 0.5 % (0.0-1.8) 02/28/20 04:45 Lymph # (Auto) 0.7 K/mm3 (1.2-5.4) L 02/28/20 04:45 [place] # (Auto) 0.3 K/mm3 (0.0-0.8) 02/28/20 04:45 Eos # (Auto) 0.0 K/mm3 (0.0-0.4) 02/28/20 04:45 Baso # (Auto) 0.0 K/mm3 (0.0-0.1) 02/28/20 04:45 Seg Neutrophils % 81.7 % (40.0-70.0) H 02/28/20 04:45 Seg Neutrophils # 4.9 K/mm3 (1.8-7.7) 02/28/20 04:45 PT 13.1 Sec. (12.2-14.9) 02/28/20 04:45 INR 1.01 (0.87-1.13) 02/28/20 04:45 D-Dimer 312.01 ng/mlDDU (0-234) H 02/27/20 20:39 Sodium 139 mmol/L (137-145) 02/28/20 04:45 Potassium 4.3 mmol/L (3.6-5.0) D 02/28/20 04:45 Chloride 99.7 mmol/L (98-107) 02/28/20 04:45 Carbon Dioxide 26 mmol/L (22-30) 02/28/20 04:45 Anion Gap 18 mmol/L 02/28/20 04:45 BUN 8 mg/dL (7-17) 02/28/20 04:45 Creatinine 0.7 mg/dL (0.6-1.2) 02/28/20 04:45 Estimated GFR > 60 ml/min 02/28/20 04:45 BUN/Creatinine Ratio 11 % 02/28/20 04:45 Glucose 131 mg/dL (65-100) H 02/28/20 04:45 Calcium 9.4 mg/dL (8.4-10.2) 02/28/20 04:45 Ferritin 366.5 ng/mL (10.0-200.0) H 02/27/20 20:39 Lactate Dehydrogenase 440 units/L (91-180) H 02/27/20 20:39 Troponin T < 0.010 ng/mL (0.00-0.029) 02/27/20 14:40 C-Reactive Protein 3.60 mg/dL (0.00-1.30) H 02/27/20 20:39 Procalcitonin < 0.05 ng/mL (<0.15) 02/27/20 20:39 Coronavirus (PCR) Positive (Negative) A 02/28/20 08:10 Microbiology: Microbiology 02/27/20 23:39 Peripheral/Venous Blood Culture - Preliminary Culture in Progress 02/27/20 23:14 Peripheral/Venous Blood Culture - Preliminary Culture in Progress Pacheco/IV: IV Catheter Type [Right INT / Saline Lock Antecubital] Active Medications - Current Medications Current Medications: Generic Name Dose Route Start Last Admin Trade Name Freq PRN Reason Stop Dose Admin Acetaminophen 650 mg 02/27/20 23:40 Tylenol PO Q4H PRN Pain MILD(1-3)/Fever >100.5/ADEN Amlodipine Besylate 10 mg 02/28/20 10:00 02/28/20 11:04 Amlodipine PO 10 mg DAILY [facility] Administration Dexamethasone 6 mg 02/28/20 10:00 02/28/20 11:05 Decadron IV 03/07/20 10:01 6 mg Q24HR [facility] Administration Enoxaparin Sodium 40 mg 02/28/20 22:00 Enoxaparin SUB-Q QDAY@2200 [facility] Protocol Hydralazine HCl 10 mg 02/28/20 10:00 Apresoline IV Q4HR PRN Hypertension Hydralazine HCl 50 mg 02/28/20 19:00 Apresoline PO TID [facility] Hydrochlorothiazide 25 mg 02/28/20 19:00 Hctz PO QDAY [facility] Labetalol HCl 10 mg 02/28/20 15:36 02/28/20 15:49 Labetalol IV 10 mg Q3HR PRN Administration Hypertension Labetalol HCl 200 mg 02/28/20 22:00 Labetalol PO BID [facility] Magnesium Hydroxide 30 ml 02/27/20 23:40 Milk Of Magnesia PO Q4H PRN Constipation Morphine Sulfate 2 mg 02/27/20 23:40 Morphine IV Q4H PRN Pain, Moderate (4-6) Ondansetron HCl 4 mg 02/27/20 23:40 Zofran IV Q8H PRN Nausea And Vomiting Sodium Chloride 10 ml 02/28/20 10:00 Sodium Chloride Flush Syringe 10 Ml IV BID [facility] Sodium Chloride 10 ml 02/27/20 23:40 Sodium Chloride Flush Syringe 10 Ml IV PRN PRN LINE FLUSH
[2020-02-28] MEDS ORDERED: hydrALAZINE 25 MG TAB PO SCH ×2 (19:00)
[2020-02-28] MEDS ORDERED: hydroCHLOROthiazide 25 MG TAB ONE (19:47)
[2020-02-28] MEDS ORDERED: hydrALAZINE 25 MG TAB ONE (19:47)
[2020-02-28] MEDS: hydroCHLOROthiazide 25 MG TAB PO SCH (19:51)
[2020-02-28] MEDS: ASCORBIC ACID 500 MG TAB PO SCH (22:35)
[2020-02-28] MEDS: ENOXAPARIN 40 MG/0.4 ML INJ SUB-Q SCH (22:35)
--- NOTE | 2020-02-29 05:56 | Progress Note ---
Assessment and Plan Assessment and plan: 44-year-old female with known history of hypertension and morbid obesity presenting to the emergency room today complaining of shortness of breath and generalized weakness. Shortness of breath is said to have started yesterday. She denies any fever or chills, no chest pain, no nausea vomiting, no abdominal pain, no hematuria or dysuria. Patient denies any sick contacts and no recent travel. Patient was seen in this hospital few days ago with abdominal pain and diarrhea x-ray of the chest showed bilateral lower lobe atelectasis versus opacities, a noncontrast CT scan of the abdomen and pelvis was negative for any intra- abdominal pathology. CT chest IMPRESSION: 1. No CT evidence for pulmonary embolism or right heart strain. 2. Scattered groundglass opacities throughout bilateral lung myers with peripheral predominance likely represents a viral versus atypical infectious process. Upon arrival in the emergency room patient was hypoxic on minimal exertion. Blood pressure was only so elevated with systolic in the 200s. However patient indicates that she was slightly anxious. Work-up in the emergency room today, CT angiogram reveals scattered groundglass opacities, no evidence of pulmonary embolism. Patient was mildly hypokalemic with potassium of 3.4. Patient placed on empiric IV antibiotics and also placed on isolation precautions for Covid 19. 02/27: Discussed compliance with the patient on BP meds, will gradually control to prevent sudden drop. Patient confirmed COVID19. We will add some vitamins. Extensive counseling 15 minutes on weight management. The patient reports that she lives in a house with her daughter and grandson and a roommate. She has not notified them so that they cannot be tested. Encourage prone positioning. Continue management per ID. 02/28: BP still significantly elevated will advise valsartan. Will increase hydralazine 200mg. Ideally patient will benefit from an echocardiogram due to the cost of the current COVID-19 will recommend this outpatient. Ab testing Testing, outpatient sleep study per pulmonary (1) Pneumonia Current Visit: Yes Status: Acute Plan to address problem: Possibly viral pneumonia. However patient started on empiric IV antibiotics. We also await blood culture results. (2) 2019 novel coronavirus infection Current Visit: Yes Status: Acute Plan to address problem: Patient placed on isolation precautions. (3) Hypoxia Current Visit: Yes Status: Acute Plan to address problem: Possibly secondary to the underlying pneumonia. We will keep O2 saturation greater or equal to 94%. (4) Morbid obesity Current Visit: Yes Status: Acute Plan to address problem: We will place dietary consult. (5) Uncontrolled hypertension Current Visit: Yes Status: Acute Plan to address problem: We will resume routine antihypertensive medications once reconciled. Will monitor vital signs closely. (6) DVT prophylaxis Current Visit: Yes Status: Acute Plan to address problem: Patient placed on subcutaneous Lovenox. (7) Full code status Current Visit: Yes Status: Acute History Interval history: Patient admitted with hypertensive urgency, shortness of breath. Patient seen and examined, ambulating in the room without much difficulty Hospitalist Physical - Physical exam Narrative exam: VITAL SIGNS: Reviewed. GENERAL: The patient appears normally developed, morbidly obese vital signs as documented. HEAD: No signs of head trauma. EYES: Pupils are equal. Extraocular motions intact. EARS: Hearing grossly intact. MOUTH: Oropharynx is normal. NECK: No adenopathy, no JVD. CHEST: Chest with diminished breath sounds bilaterally. No wheezes, rales, or rhonchi. CARDIAC: Regular rate and rhythm. S1 and S2, without murmurs, gallops, or rubs. VASCULAR: No Edema. Peripheral pulses normal and equal in all extremities. ABDOMEN: Soft, non tender and non distended. No rebound or guarding, and no masses palpated. Bowel Sounds normal. MUSCULOSKELETAL: Good range of motion of all major joints. Extremities without clubbing, cyanosis or edema. NEUROLOGIC EXAM: Alert and oriented x 3 No focal sensory or strength deficits. Speech normal. Follows commands. PSYCHIATRIC: Mood normal. SKIN: Detail exam as documented in skin assessment - Constitutional Vitals: Temp Pulse Resp BP Pulse Ox 98.7 F 111 H 20 195/107 96 02/28/20 22:10 02/28/20 22:10 02/28/20 22:10 02/28/20 22:10 02/28/20 22:10 General appearance: Present: no acute distress, well-nourished, obese HEART Score - HEART Score Troponin: Troponin T < 0.010 ng/mL (0.00-0.029) 02/27/20 14:40 Results - Labs CBC & Chem 7: 02/28/20 04:45 02/28/20 04:45 Labs: Laboratory Last Values WBC 6.0 K/mm3 (4.5-11.0) 02/28/20 04:45 RBC 5.34 M/mm3 (3.65-5.03) H 02/28/20 04:45 Hgb 14.0 gm/dl (10.1-14.3) 02/28/20 04:45 Hct 41.8 % (30.3-42.9) 02/28/20 04:45 MCV 78 fl (79-97) L 02/28/20 04:45 MCH 26 pg (28-32) L 02/28/20 04:45 MCHC 34 % (30-34) 02/28/20 04:45 RDW 15.2 % (13.2-15.2) 02/28/20 04:45 Plt Count 292 K/mm3 (140-440) 02/28/20 04:45 Lymph % (Auto) 12.2 % (13.4-35.0) L 02/28/20 04:45 [place] % (Auto) 5.5 % (0.0-7.3) 02/28/20 04:45 Eos % (Auto) 0.1 % (0.0-4.3) 02/28/20 04:45 Baso % (Auto) 0.5 % (0.0-1.8) 02/28/20 04:45 Lymph # (Auto) 0.7 K/mm3 (1.2-5.4) L 02/28/20 04:45 [place] # (Auto) 0.3 K/mm3 (0.0-0.8) 02/28/20 04:45 Eos # (Auto) 0.0 K/mm3 (0.0-0.4) 02/28/20 04:45 Baso # (Auto) 0.0 K/mm3 (0.0-0.1) 02/28/20 04:45 Seg Neutrophils % 81.7 % (40.0-70.0) H 02/28/20 04:45 Seg Neutrophils # 4.9 K/mm3 (1.8-7.7) 02/28/20 04:45 PT 13.1 Sec. (12.2-14.9) 02/28/20 04:45 INR 1.01 (0.87-1.13) 02/28/20 04:45 D-Dimer 312.01 ng/mlDDU (0-234) H 02/27/20 20:39 Sodium 139 mmol/L (137-145) 02/28/20 04:45 Potassium 4.3 mmol/L (3.6-5.0) D 02/28/20 04:45 Chloride 99.7 mmol/L (98-107) 02/28/20 04:45 Carbon Dioxide 26 mmol/L (22-30) 02/28/20 04:45 Anion Gap 18 mmol/L 02/28/20 04:45 BUN 8 mg/dL (7-17) 02/28/20 04:45 Creatinine 0.7 mg/dL (0.6-1.2) 02/28/20 04:45 Estimated GFR > 60 ml/min 02/28/20 04:45 BUN/Creatinine Ratio 11 % 02/28/20 04:45 Glucose 131 mg/dL (65-100) H 02/28/20 04:45 Calcium 9.4 mg/dL (8.4-10.2) 02/28/20 04:45 Ferritin 366.5 ng/mL (10.0-200.0) H 02/27/20 20:39 Lactate Dehydrogenase 440 units/L (91-180) H 02/27/20 20:39 Troponin T < 0.010 ng/mL (0.00-0.029) 02/27/20 14:40 C-Reactive Protein 3.60 mg/dL (0.00-1.30) H 02/27/20 20:39 Procalcitonin < 0.05 ng/mL (<0.15) 02/27/20 20:39 Coronavirus (PCR) Positive (Negative) A 02/28/20 08:10 Microbiology: Microbiology 02/27/20 23:39 Peripheral/Venous Blood Culture - Preliminary NO GROWTH AFTER 24 HOURS 02/27/20 23:14 Peripheral/Venous Blood Culture - Preliminary NO GROWTH AFTER 24 HOURS P[facility]co/IV: IV Catheter Type [Right INT / Saline Lock Antecubital] Active Medications - Current Medications Current Medications: Generic Name Dose Route Start Last Admin Trade Name Freq PRN Reason Stop Dose Admin Acetaminophen 650 mg 02/27/20 23:40 Tylenol PO Q4H PRN Pain MILD(1-3)/Fever >100.5/ADEN Amlodipine Besylate 10 mg 02/28/20 10:00 02/28/20 11:04 Amlodipine PO 10 mg DAILY [facility] Administration Ascorbic Acid 1,000 mg 02/28/20 22:00 02/28/20 22:35 Vitamin C PO 1,000 mg BID [facility] Administration Dexamethasone 6 mg 02/28/20 10:00 02/28/20 11:05 Decadron IV 03/07/20 10:01 6 mg Q24HR [facility] Administration Enoxaparin Sodium 40 mg 02/28/20 22:00 02/28/20 22:35 Enoxaparin SUB-Q 40 mg QDAY@2200 [facility] Administration Protocol Hydralazine HCl 10 mg 02/28/20 10:00 Apresoline IV Q4HR PRN Hypertension Hydralazine HCl 100 mg 02/29/20 05:49 Apresoline PO TID [facility] Hydrochlorothiazide 25 mg 02/28/20 19:00 02/28/20 19:51 Hctz PO 25 mg QDAY [facility] Administration Labetalol HCl 10 mg 02/28/20 15:36 02/28/20 22:53 Labetalol IV 10 mg Q3HR PRN Administration Hypertension Labetalol HCl 200 mg 02/28/20 22:00 02/28/20 22:35 Labetalol PO 200 mg BID [facility] Administration Magnesium Hydroxide 30 ml 02/27/20 23:40 Milk Of Magnesia PO Q4H PRN Constipation Morphine Sulfate 2 mg 02/27/20 23:40 Morphine IV Q4H PRN Pain, Moderate (4-6) Ondansetron HCl 4 mg 02/27/20 23:40 Zofran IV Q8H PRN Nausea And Vomiting Sodium Chloride 10 ml 02/28/20 10:00 02/28/20 22:36 Sodium Chloride Flush Syringe 10 Ml IV 10 ml BID [facility] Administration Sodium Chloride 10 ml 02/27/20 23:40 Sodium Chloride Flush Syringe 10 Ml IV PRN PRN LINE FLUSH Valsartan 160 mg 02/29/20 10:00 Diovan PO BID [facility] Zinc Sulfate 220 mg 02/29/20 10:00 Zinc Sulfate PO QDAY [facility]
[2020-02-29] MEDS ORDERED: hydrALAZINE 25 MG TAB PO SCH (06:00)
[2020-02-29] MEDS: hydrALAZINE 100 MG TAB PO SCH ×3 (06:48→21:33)
--- NOTE | 2020-02-29 08:10 | Consultation ---
History of Present Illness Consult date: 02/29/20 Reason for consult: hypoxemia Past History Past Medical History: hypertension Past Surgical History: No surgical history Social history: no significant social history Family history: no significant family history Medications and Allergies Allergies Allergy/AdvReac Type Severity Reaction Status Date / Time amoxicillin Allergy Headache Verified 03/19/14 23:02 Home Medications Medication Instructions Recorded Confirmed Last Taken Type Metoprolol [Lopressor TAB] 25 mg PO BID #60 tablet 02/24/20 02/27/20 Unknown Rx amLODIPine 10 mg PO DAILY #30 tab 02/24/20 02/27/20 02/27/20 Rx 10 mg Active Meds: Active Medications Acetaminophen (Tylenol) 650 mg PO Q4H PRN PRN Reason: Pain MILD(1-3)/Fever >100.5/ADEN Amlodipine Besylate (Amlodipine) 10 mg PO DAILY [facility] Last Admin: 02/28/20 11:04 Dose: 10 mg Documented by: Ascorbic Acid (Vitamin C) 1,000 mg PO BID [facility] Last Admin: 02/28/20 22:35 Dose: 1,000 mg Documented by: Dexamethasone (Decadron) 6 mg IV Q24HR [facility] Stop: 03/07/20 10:01 Last Admin: 02/28/20 11:05 Dose: 6 mg Documented by: Enoxaparin Sodium (Enoxaparin) 40 mg SUB-Q QDAY@2200 [facility]; Protocol Last Admin: 02/28/20 22:35 Dose: 40 mg Documented by: Hydralazine HCl (Apresoline) 10 mg IV Q4HR PRN PRN Reason: Hypertension Hydralazine HCl (Apresoline) 100 mg PO TID [facility] Last Admin: 02/29/20 06:48 Dose: 100 mg Documented by: Hydrochlorothiazide (Hctz) 25 mg PO QDAY [facility] Last Admin: 02/28/20 19:51 Dose: 25 mg Documented by: Labetalol HCl (Labetalol) 10 mg IV Q3HR PRN PRN Reason: Hypertension Last Admin: 02/28/20 22:53 Dose: 10 mg Documented by: Labetalol HCl (Labetalol) 200 mg PO BID@0800,1700 [facility] Magnesium Hydroxide (Milk Of Magnesia) 30 ml PO Q4H PRN PRN Reason: Constipation Morphine Sulfate (Morphine) 2 mg IV Q4H PRN PRN Reason: Pain, Moderate (4-6) Ondansetron HCl (Zofran) 4 mg IV Q8H PRN PRN Reason: Nausea And Vomiting Sodium Chloride (Sodium Chloride Flush Syringe 10 Ml) 10 ml IV BID [facility] Last Admin: 02/28/20 22:36 Dose: 10 ml Documented by: Sodium Chloride (Sodium Chloride Flush Syringe 10 Ml) 10 ml IV PRN PRN PRN Reason: LINE FLUSH Valsartan (Diovan) 160 mg PO BID [facility] Zinc Sulfate (Zinc Sulfate) 220 mg PO QDAY [facility] Physical Examination Vital signs: Vital Signs Temp Pulse Resp BP Pulse Ox 98.5 F 140 H 19 198/126 94 02/27/20 09:48 02/27/20 09:48 02/27/20 09:48 02/27/20 09:48 02/27/20 09:48 Results - Laboratory Findings CBC and BMP: 02/28/20 04:45 02/28/20 04:45 PT/INR, D-dimer PT 13.1 Sec. (12.2-14.9) 02/28/20 04:45 INR 1.01 (0.87-1.13) 02/28/20 04:45 D-Dimer 308.05 ng/mlDDU (0-234) H 02/29/20 05:40 Abnormal lab findings: Abnormal Labs 02/27/20 02/27/20 02/27/20 10:58 10:58 20:39 RBC 5.78 H Hgb 14.9 H Hct 44.9 H MCV 78 L MCH 26 L RDW 15.4 H Lymph % (Auto) Cass % (Auto) 8.1 H Lymph # (Auto) Seg Neutrophils % 72.3 H D-Dimer 312.01 H Sodium 136 L Potassium 3.4 L Chloride 97.1 L Glucose 117 H Ferritin Lactate Dehydrogenase C-Reactive Protein Coronavirus (PCR) 02/27/20 02/27/20 02/28/20 20:39 20:39 04:45 RBC 5.34 H Hgb Hct MCV 78 L MCH 26 L RDW Lymph % (Auto) 12.2 L Cass % (Auto) Lymph # (Auto) 0.7 L Seg Neutrophils % 81.7 H D-Dimer Sodium Potassium Chloride Glucose 110 H Ferritin 366.5 H Lactate Dehydrogenase 440 H C-Reactive Protein 3.60 H Coronavirus (PCR) 02/28/20 02/28/20 02/29/20 04:45 08:10 05:40 RBC Hgb Hct MCV MCH RDW Lymph % (Auto) Cass % (Auto) Lymph # (Auto) Seg Neutrophils % D-Dimer 308.05 H Sodium Potassium Chloride Glucose 131 H Ferritin Lactate Dehydrogenase C-Reactive Protein Coronavirus (PCR) Positive A 02/29/20 05:40 RBC Hgb Hct MCV MCH RDW Lymph % (Auto) Cass % (Auto) Lymph # (Auto) Seg Neutrophils % D-Dimer Sodium Potassium Chloride Glucose Ferritin 322.9 H Lactate Dehydrogenase C-Reactive Protein Coronavirus (PCR) Assessment and Plan 44 y/o morbidly obese female here with hypertensive urgency, acute respiratory failure and found to be COVID positive 1. Agree with PO steroids 2. Trend inflammatory markers 3. Needs ab test to see if she would qualify for Convalescent plasma 4. Needs some form of RT consult as not documentation of oxygen requirement currently in chart 5. Weight loss 6. Sleep apnea screening as an outpatient 7. Prone as much during the day and sleep prone at night if possible 8. Needs tight BP control Guarded prognosis given obesity.
[2020-02-29] MEDS: VALSARTAN 160MG TAB PO SCH ×2 (12:01→21:33)
[2020-02-29] MEDS: ZINC SULFATE 220 MG CAP PO SCH (12:01)
[2020-02-29] MEDS: amLODIPine 10 MG TAB PO SCH (12:01)
[2020-02-29] MEDS: ASCORBIC ACID 500 MG TAB PO SCH ×2 (12:02→21:33)
[2020-02-29] MEDS: hydroCHLOROthiazide 25 MG TAB PO SCH (12:02)
[2020-02-29] MEDS: dexAMETHasone 4 MG/ML VIAL IV SCH (12:02)
--- NOTE | 2020-02-29 16:18 | Progress Note ---
Assessment and Plan Cultures: Blood culture 02/27/2020 pending A/P: 44-year-old female past medical history hypertension, obesity admitted with COVID-19 #COVID-19 pneumonia: Presented with 2 days of symptoms. #Acute hypoxemic respiratory failure: Likely secondary to COVID-19 infection. Currently on room air #Morbid obesity: Associated with worse COVID-19 outcomes #Penicillin allergy: Tolerating ceftriaxone Recs: -Recommend steroids for 10 days -Started remdesivir due to oxygen requirement monitor hepatic and renal function. Monitor hepatic and renal function. -Proning as able -Anticoagulation per hospital protocol -Obtain daily inflammatory markers - ferritin, Ddimer, CRP, LDH Thank you for the consult, we will continue to follow. Constanza Redding MD [facility] ([facility]) O: [phone] F: [phone] Subjective Date of service: 02/29/20 Interval history: Afebrile, normal white count. No acute changes at present. Objective - Exam Narrative Exam: Physical exam deferred due to PPE conservation strategy. Please refer to primary team's note. - Constitutional Vitals: Vital Signs Temp Pulse Resp BP Pulse Ox 98.3 F 106 H 18 151/97 95 02/29/20 11:43 02/29/20 12:03 02/29/20 13:00 02/29/20 12:03 02/29/20 15:05 Temperature -Last 24 Hours Temperature 98.3 F Temperature 98.1 F Temperature 98.7 F Temperature 97.8 F - Labs CBC & Chem 7: 02/28/20 04:45 02/28/20 04:45 Labs: Abnormal lab results 02/29/20 02/29/20 Range/Units 05:40 05:40 D-Dimer 308.05 H (0-234) ng/mlDDU Ferritin 322.9 H (10.0-200.0) ng/mL
[2020-02-29] MEDS ORDERED: REMDESIVIR 100 MG VIAL IV ONE (18:00)
[2020-02-29] MEDS ORDERED: REMDESIVIR 200 MG in SODIUM CHLORIDE 0.9% 250ML 250 ML IV ONE (18:00)
[2020-02-29] MEDS ORDERED: SODIUM CHLORIDE 0.9% 50 ML IVPB IV SCH (18:30)
[2020-02-29] MEDS: ENOXAPARIN 40 MG/0.4 ML INJ SUB-Q SCH (21:32)
[2020-03-01] MEDS ORDERED: DEXAMETHASONE 4 MG TAB PO SCH (10:00)
[2020-03-01] MEDS: ASCORBIC ACID 500 MG TAB PO SCH (12:14)
[2020-03-01] MEDS: hydroCHLOROthiazide 25 MG TAB PO SCH (12:14)
[2020-03-01] MEDS: amLODIPine 10 MG TAB PO SCH (12:15)
[2020-03-01] MEDS: hydrALAZINE 100 MG TAB PO SCH ×2 (12:16→16:47)
--- NOTE | 2020-03-01 12:21 | Progress Note ---
Assessment and Plan 44 y/o morbidly obese female here with hypertensive urgency, acute respiratory failure and found to be COVID positive 1. Agree with PO steroids 2. Trend inflammatory markers 3. Needs ab test to see if she would qualify for Convalescent plasma 4. Needs some form of RT consult as not documentation of oxygen requirement currently in chart 5. Weight loss 6. Sleep apnea screening as an outpatient 7. Prone as much during the day and sleep prone at night if possible 8. Needs tight BP control Guarded prognosis given obesity. Subjective Date of service: 03/01/20 Interval history: No acute events. Objective Vital Signs - 12hr 03/01/20 03/01/20 03/01/20 00:24 06:55 11:54 Temperature 97.4 F L 97.5 F L Pulse Rate 89 91 H Respiratory 18 20 22 Rate Blood Pressure 152/84 142/91 O2 Sat by Pulse 99 94 96 Oximetry 03/01/20 03/01/20 12:15 12:16 Temperature Pulse Rate 91 H 91 H Respiratory Rate Blood Pressure 142/91 142/91 O2 Sat by Pulse Oximetry CBC and BMP: 02/28/20 04:45 02/28/20 04:45 ABG, PT/INR, D-dimer: PT/INR, D-dimer PT 13.1 Sec. (12.2-14.9) 02/28/20 04:45 INR 1.01 (0.87-1.13) 02/28/20 04:45 D-Dimer 308.05 ng/mlDDU (0-234) H 02/29/20 05:40 Abnormal lab findings: Abnormal Labs 02/27/20 02/27/20 02/27/20 10:58 10:58 20:39 RBC 5.78 H Hgb 14.9 H Hct 44.9 H MCV 78 L MCH 26 L RDW 15.4 H Lymph % (Auto) [place] % (Auto) 8.1 H Lymph # (Auto) Seg Neutrophils % 72.3 H D-Dimer 312.01 H Sodium 136 L Potassium 3.4 L Chloride 97.1 L Glucose 117 H Ferritin Lactate Dehydrogenase C-Reactive Protein Coronavirus (PCR) 02/27/20 02/27/20 02/28/20 20:39 20:39 04:45 RBC 5.34 H Hgb Hct MCV 78 L MCH 26 L RDW Lymph % (Auto) 12.2 L [place] % (Auto) Lymph # (Auto) 0.7 L Seg Neutrophils % 81.7 H D-Dimer Sodium Potassium Chloride Glucose 110 H Ferritin 366.5 H Lactate Dehydrogenase 440 H C-Reactive Protein 3.60 H Coronavirus (PCR) 02/28/20 02/28/20 02/29/20 04:45 08:10 05:40 RBC Hgb Hct MCV MCH RDW Lymph % (Auto) [place] % (Auto) Lymph # (Auto) Seg Neutrophils % D-Dimer 308.05 H Sodium Potassium Chloride Glucose 131 H Ferritin Lactate Dehydrogenase C-Reactive Protein Coronavirus (PCR) Positive A 02/29/20 05:40 RBC Hgb Hct MCV MCH RDW Lymph % (Auto) [place] % (Auto) Lymph # (Auto) Seg Neutrophils % D-Dimer Sodium Potassium Chloride Glucose Ferritin 322.9 H Lactate Dehydrogenase C-Reactive Protein Coronavirus (PCR)
[2020-03-01] MEDS: VALSARTAN 160MG TAB PO SCH (12:26)
[2020-03-01] MEDS: ZINC SULFATE 220 MG CAP PO SCH (12:27)
--- NOTE | 2020-03-01 12:49 | Discharge Summary ---
Providers - Providers Date of Admission: 02/28/20 20:23 Attending physician: JORI MCRAE MD 02/27/20 22:44 Consult to Physician [CONS] Urgent Comment: Consulting Provider: SIGIFREDO RENEE Physician Instructions: Reason For Exam: covid 02/28/20 09:35 Consult to Physician [CONS] Routine Comment: Consulting Provider: KIRK BROOKS Physician Instructions: Reason For Exam: ACUTE RESPIRATORY FAILURE Primary care physician: RANGE EXAMINER Hospitalization Condition: Stable Hospital course: Clinically stable despite being off oxygen for the past 24 hours no need for oxygen at this time. Disposition: DC- TO HOME OR SELFCARE Exam - Constitutional Vitals: Temp Pulse Resp BP Pulse Ox 97.5 F L 91 H 22 142/91 95 03/01/20 11:54 03/01/20 12:16 03/01/20 11:54 03/01/20 12:16 03/01/20 12:31 Plan Activity: advance as tolerated, fall precautions Diet: low fat Special Instructions: record daily weights, record daily BP diary, record blood sugar diary, other (Strongly recommend to lose weight) Additional Instructions: Continue all isolation precautions to ensure family members are safe. Must follow with pulmonary for sleep study Follow up with: PRIMARY MD VIDHI [Primary Care Provider] - 3-5 Days STEVE RAMIREZ MD [Staff Physician] - 7 Days Prescriptions: hydrALAZINE [Apresoline TAB] 100 mg PO TID #90 tab dexAMETHasone [Dexamethasone] 6 mg PO DAILY #6 tablet Valsartan [Diovan] 160 mg PO BID #60 tablet hydroCHLOROthiazide [HCTZ] 25 mg PO QDAY #30 tablet Metoprolol [Lopressor TAB] 50 mg PO BID #60 tablet Ascorbic Acid [Vitamin C] 1,000 mg PO BID #60 tablet Cholecalciferol (Vitamin D3) [Vitamin D3 5,000 UNIT] 5,000 unit PO DAILY #30 capsule Zinc Sulfate 220 mg PO QDAY #30 capsule
--- NOTE | 2020-03-01 15:36 | Progress Note ---
Assessment and Plan Cultures: Blood culture 02/27/2020 pending A/P: 44-year-old female past medical history hypertension, obesity admitted with COVID-19 #COVID-19 pneumonia: Presented with 2 days of symptoms. #Acute hypoxemic respiratory failure: Likely secondary to COVID-19 infection. Currently on room air #Morbid obesity: Associated with worse COVID-19 outcomes #Penicillin allergy: Tolerating ceftriaxone Recs: -Recommend steroids for 10 days -Started remdesivir due to oxygen requirement monitor hepatic and renal function. Monitor hepatic and renal function. -Proning as able -Anticoagulation per hospital protocol -Obtain daily inflammatory markers - ferritin, Ddimer, CRP, LDH Okay for discharge at any point infectious disease perspective. Thank you for the consult, we will continue to follow. Constanza Redding MD [facility] ([facility]) O: [phone] F: [phone] Subjective Date of service: 03/01/20 Interval history: Afebrile, normal white count. Objective - Exam Narrative Exam: Physical exam deferred due to PPE conservation strategy. Please refer to primary team's note. - Constitutional Vitals: Vital Signs Temp Pulse Resp BP Pulse Ox 97.5 F L 91 H 20 142/91 96 03/01/20 11:54 03/01/20 12:16 03/01/20 13:00 03/01/20 12:16 03/01/20 13:00 Temperature -Last 24 Hours Temperature 97.5 F Temperature 97.4 F Temperature 98.2 F Temperature 98.8 F - Labs CBC & Chem 7: 02/28/20 04:45 02/28/20 04:45
[2020-03-01 16:26] LABS: Alanine Aminotransferase 58 units/L (7-56); Albumin 3.8 g/dL (3.9-5)
[2020-03-01 16:27] LABS: Bilirubin,Direct < 0.2 mg/dL (0-0.2)
[2020-03-01 16:46] VITALS: BP 149/90
[2020-03-01] MEDS ORDERED: REMDESIVIR 100 MG in SODIUM CHLORIDE 0.9% 250ML 250 ML IV SCH (21:00)
== END 2020-03-01 18:49 | disposition home or self-care (01) | DRG 177 ==
LOC: ED 09:37 → 3A 22:49 → OBSVTOIN 02-28 20:23
PROVIDERS: ADMIT Internal Medicine Geriatric Medicine; ATTEND Internal Medicine
PROC: XW033E5 Introduction of Remdesivir Anti-infective into Peripheral Vein, Percutaneous Approach, New Technology Group 5 (ICD-10-PCS; principal; 2020-02-29)
DX: U07.1 COVID-19 (principal); J12.89 Other viral pneumonia; Z68.43 Body mass index [BMI] 50.0-59.9, adult; I10 Essential (primary) hypertension; E66.01 Morbid (severe) obesity due to excess calories; R09.02 Hypoxemia; Z88.8 Allergy status to other drugs, medicaments and biological substances
CPT/HCPCS: 36415; 71046; 71275; 80048; 80076; 82728; 82947; 83615; 84145; 84484; 85025; 85379; 85610; 86140; 87040; 93005; 96365; 96375; G0378; J0456; J0696; J1100; J1650; J7040; J7050; J8540; Q9967; U0003